=== PATIENT | female | born 1965 | race Caucasian/White ===

== ENCOUNTER → 2018-09-14 | Outpatient (CLI) | payer BC ==
[~2018-09-14] MED LIST: FLUO20CA8 PO; LEVO137T3 PO; OLME1TAB44 PO; PANT40TA5 PO; POTA10TA31 PO; SIMV40TA3 PO
[2018-09-14 08:55] LABS: ALBUMIN 3.6 g/dL (3.4-5.0); ANION GAP 4 mmol/L (5-15); CALCIUM 8.8 mg/dL (8.5-10.1); CHLORIDE 109 mmol/L (98-107)
[2018-09-14 08:58] LABS: ALANINE AMINOTRANSFERASE 27 U/L (12-78); ALKALINE PHOSPHATASE 112 U/L (45-117); BILIRUBIN,TOTAL 0.5 mg/dL (0.2-1.0); CREATININE 0.81 mg/dL (0.55-1.02); TOTAL PROTEIN 7.3 g/dL (6.4-8.2)
== END | disposition home or self-care (01) ==
LOC: MERGE 08:00 → STAR 08:03
PROVIDERS: ATTEND Colon & Rectal Surgery
DX: Z01.818 Encounter for other preprocedural examination (principal)
CPT/HCPCS: 36415; 80053

== ENCOUNTER 2018-09-21 05:50 | Inpatient (IN) | payer BC ==
[~2018-09-21] VITALS: Ht 172.7 cm; Wt 91.6 kg
[2018-09-21] MEDS ORDERED: LACTATED RINGERS 1,000 ML IV SCH ×2 (06:22→11:30)
[2018-09-21] MEDS ORDERED: BUPIVACAINE/PF-EPI 0.5% 1:200K ONE (07:00)
[2018-09-21] MEDS ORDERED: MIDAZOLAM 1 MG/ML, 2ML ONE (07:16)
[2018-09-21] MEDS ORDERED: FENTANYL PF 250 MCG/5ML ONE (07:16)
[2018-09-21] MEDS ORDERED: ONDANSETRON 2MG/ML, 2ML IV PRN ×2 (07:30→11:00)
[2018-09-21] MEDS ORDERED: HYDROmorphone 2 MG/ML, 1ML IVPush PRN (07:30)
[2018-09-21] MEDS ORDERED: ONDANSETRON ODT 8 MG PO PRN (07:30)
[2018-09-21] MEDS ORDERED: hydrALAzine 20 MG/ML, 1ML IV PRN (07:30)
[2018-09-21] MEDS ORDERED: ACETAMINOPHEN 325 MG TABLET PO PRN (07:30)
[2018-09-21] MEDS ORDERED: OXYcodone 5 MG/5 ML ORAL.SOL UDC PO PRN (07:30)
[2018-09-21] MEDS ORDERED: DIAZEPAM 5 MG/ML, 2ML IVPush PRN (07:30)
[2018-09-21] MEDS ORDERED: LABETALOL 5MG/ML, 20ML IV PRN (07:30)
[2018-09-21] MEDS ORDERED: PROMETHAZINE 25 MG/ML, 1ML IV PRN (07:30)
[2018-09-21] MEDS ORDERED: GLYCOPYRROLATE 0.2MG/1ML, 5ML ONE (08:42)
[2018-09-21] MEDS ORDERED: PROPOFOL 10 MG/ML, 20ML ONE (08:42)
[2018-09-21] MEDS ORDERED: CEFAZOLIN 1,000 MG ONE (08:42)
[2018-09-21] MEDS ORDERED: NEOSTIGMINE 1 MG/ML, 10ML ONE (08:42)
[2018-09-21] MEDS ORDERED: SUCCINYLCHOLINE 20 MG/ML, 10ML ONE (08:42)
[2018-09-21] MEDS ORDERED: ROCURONIUM 10MG/ML,5ML ONE (08:42)
[2018-09-21] MEDS ORDERED: ONDANSETRON 2MG/ML, 2ML ONE ×2 (08:42→09:23)
[2018-09-21] MEDS ORDERED: DEXAMETHASONE 4 MG/ML, 1ML ONE (08:42)
[2018-09-21] MEDS ORDERED: FENTANYL PF 100 MCG/2ML ONE (09:23)
[2018-09-21] MEDS: FENTANYL PF 100 MCG/2ML IV PRN ×2 (09:27→09:45)
[2018-09-21] MEDS ORDERED: LABETALOL 20 MG/4 ML ONE (10:05)
[2018-09-21] MEDS ORDERED: TRAZODONE 50MG TABLET PO PRN (11:00)
[2018-09-21] MEDS ORDERED: MORPHINE SULFATE 4 MG/ML, 1ML IVPush PRN (11:00)
[2018-09-21] MEDS ORDERED: LORazepam 2 MG/ML, 1ML IVPush PRN (11:00)
[2018-09-21] MEDS ORDERED: LORazepam 1MG TABLET PO PRN (11:00)
[2018-09-21] MEDS ORDERED: CALCIUM CARBONATE 500 MG TAB.CHEW PO PRN (11:00)
[2018-09-21] MEDS ORDERED: DIPHENHYDRAMINE 25 MG CAPSULE PO PRN (11:00)
[2018-09-21] MEDS ORDERED: DIPHENHYDRAMINE 50 MG/ML, 1ML IVPush PRN (11:00)
[2018-09-21] MEDS ORDERED: HALOPERIDOL 5 MG/ML IVPush PRN (11:00)
[2018-09-21] MEDS ORDERED: DEXAMETHASONE 4 MG/ML, 1ML IVPush PRN (11:00)
[2018-09-21] MEDS ORDERED: SCOPOLAMINE PATCH, 1.5MG PATCH.TD72 TD PRN (11:00)
[2018-09-21] MEDS: ACETAMINOPHEN 500 MG TABLET PO SCH ×3 (11:31→23:35)
[2018-09-21] MEDS: KETOROLAC 30 MG/1 ML IVPush SCH ×3 (11:31→23:36)
[2018-09-21 14:13] VITALS: BP 132/72
[2018-09-21] MEDS: OXYcodone IR 5MG TABLET PO PRN ×2 (15:40→23:45)
[2018-09-21 19:49] VITALS: BP 113/63
[2018-09-21] MEDS ORDERED: SIMVASTATIN 40 MG TABLET PO SCH (21:00)
[2018-09-21] MEDS: SODIUM CHLORIDE FLUSH 10ML SYR IVF SCH (23:36)
[2018-09-21 23:49] VITALS: BP 118/69
[2018-09-22 03:31] VITALS: BP 112/71
[2018-09-22 05:40] LABS: BASOPHILS # (AUTO) 0.06 x10^3/uL (0-0.1); BASOPHILS % (AUTO) 0 % (0-1); EOSINOPHILS # (AUTO) 0.02 x10^3/uL (0-0.4); EOSINOPHILS % (AUTO) 0 % (1-7); LYMPHOCYTES # (AUTO) 1.38 x10^3/uL (1-3.4); LYMPHOCYTES % (AUTO) 9 % (22-44); MD NO; MEAN CORPUSCULAR HEMOGLOBIN 26.1 pg (27.0-34.8); MEAN CORPUSCULAR HGB CONC 32.1 g/dL (32.4-35.8); MEAN CORPUSCULAR VOLUME 81.5 fL (80-100); MEAN PLATELET VOLUME 7.2 fL (7.4-10.4); MONOCYTES # (AUTO) 1.33 x10^3/uL (0.2-0.8); MONOCYTES % (AUTO) 9 % (2-9); NEUTROPHILS # (AUTO) 12.51 x10^3/uL (1.8-6.8); NEUTROPHILS % (AUTO) 82 % (42-75); PLATELET COUNT 354 x10^3/uL (130-400); RED BLOOD COUNT 4.53 x10^6/uL (3.82-5.3); RED CELL DISTRIBUTION WIDTH 15.9 % (9.6-15.2)
[2018-09-22 05:48] LABS: CHLORIDE 106 mmol/L (98-107)
[2018-09-22 05:52] LABS: ALBUMIN 3.5 g/dL (3.4-5.0); ANION GAP 6 mmol/L (5-15); CALCIUM 8.5 mg/dL (8.5-10.1); CREATININE 0.96 mg/dL (0.55-1.02)
[2018-09-22] MEDS ORDERED: LEVOTHYROXINE 137 MCG TABLET PO SCH (06:00)
[2018-09-22] MEDS ORDERED: PANTOPROZOLE 40MG TABLET PO SCH (06:00)
[2018-09-22] MEDS: ACETAMINOPHEN 500 MG TABLET PO SCH (06:36)
[2018-09-22] MEDS: KETOROLAC 30 MG/1 ML IVPush SCH (06:36)
[2018-09-22] MEDS ORDERED: ENOXAPARIN 40 MG/0.4 ML SQ SCH ×2 (08:00→09:00)
[2018-09-22] MEDS: SODIUM CHLORIDE FLUSH 10ML SYR IVF SCH (08:39)
[2018-09-22] MEDS: OXYcodone IR 5MG TABLET PO PRN (08:43)
[2018-09-22 08:55] VITALS: BP 115/64
[2018-09-22] MEDS ORDERED: POTASSIUM CHLORIDE 10 MEQ TABLET.ER PO SCH (09:00)
[2018-09-22] MEDS ORDERED: FLUOXETINE HCL 20 MG CAPSULE PO SCH (09:00)
[2018-09-22] MEDS ORDERED: OXYC-302 PO (09:52)
== END 2018-09-22 10:50 | disposition home or self-care (01) | DRG 331 ==
LOC: ORIP 05:50 → MERGE 07:30 → 4NOR 10:42 → DCLOUNGE 09-22 10:31
PROVIDERS: ADMIT Colon & Rectal Surgery; ATTEND Colon & Rectal Surgery
PROC: 0WQF0ZZ Repair Abdominal Wall, Open Approach (ICD-10-PCS; 2018-09-21)
PROC: 0DBE0ZZ Excision of Large Intestine, Open Approach (ICD-10-PCS; principal; 2018-09-21 07:30)
DX: Z43.3 Encounter for attention to colostomy (principal); K21.9 Gastro-esophageal reflux disease without esophagitis; E78.00 Pure hypercholesterolemia, unspecified; I10 Essential (primary) hypertension; E66.9 Obesity, unspecified; Z93.3 Colostomy status; Z98.51 Tubal ligation status; Z88.5 Allergy status to narcotic agent; Z82.49 Family history of ischemic heart disease and other diseases of the circulatory system; Z87.891 Personal history of nicotine dependence; Z68.30 Body mass index [BMI] 30.0-30.9, adult
CPT/HCPCS: 36415; J3490; 80048; 82040; 83735; 85025; 88304; G0378; J0690; J1100; J1650; J1885; J2250; J2405; J2704; J2710; J3010; J0330; J7120